=== PATIENT | female | born 1945 | race Caucasian/White ===

== ENCOUNTER 2019-12-23 16:02 | Inpatient (IN) | payer MEDICARE, OTHER ==
[~2019-12-23] VITALS: Ht 152.4 cm; Wt 97.1 kg
--- NOTE | ~2019-12-23 | CON ---
[address] [address] CONSULTATION Name: LENYGRACE Saurabh Room: [address] M.R.#: [id number] Admission: 12/24/19 Attend Phys: Clinton Ramirez MD Discharge: Date of : 43 Report #: [id number] THIS REPORT FOR: //name// cc: Jackie Parker MD, Kelly A. MD ~ THIS REPORT FOR: //name// CC: Clinton Parker DATE OF SERVICE: 12/24/2019 HISTORY OF PRESENT ILLNESS: This is a 74-year-old female patient who was evaluated by me for an episode of speech difficulty, which is resolved now. The records were reviewed and I talked to the patient and Cardiology consultation was also reviewed. The patient gives a history that she was having difficulty with some weakness, which she says is on the left side. She had some slurred speech. Those symptoms are resolved. She said she had at least 2 more episodes of similar symptoms in the past. She had an MRI done at [facility] about a month ago. She does not think that was related to the TIA. She had MRIs before. She had a Watchman put in and as I understand, she had a GI bleed and she did not want to take the blood thinner. She is on anticoagulation at the moment. REVIEW OF SYSTEMS: Indicate that she had this difficulty with speech. She had prior episodes like this. She has a pretty significant pain in the right groin area. This is since Watchman placement. She does have a history of atrial fibrillation. She had a surgery on both knees as well as shoulder. She said it is because of osteoarthritis. She had a cholecystectomy. She had hysterectomy. She has a history of hypertension. This was her relevant 14-point review of system. She does have some history of anxiety. PAST MEDICAL HISTORY: Positive for atrial fibrillation as well as GI bleed. FAMILY HISTORY: Unremarkable. SOCIAL HISTORY: She does not drink alcohol. PHYSICAL EXAMINATION: Indicate she is alert. She is responsive. She can follow simple and complex command. Her speech, concentration, fund of knowledge and memory is at her baseline. Cranial nerve examination 2-12 looks unremarkable. Neuromuscular examinations indicate that she has difficulty moving the right hip. She says it is because of pain, but I think there is some weakness there also. Reflexes in the knees could not be elicited and I cannot elicited either ankle either, but upper extremity reflexes are present. She took a long time to do the position sense, but ultimately [place] [address] CONSULTATION Name: GRACE MICHELE Room: [address] M.R.#: [id number] Admission: 12/24/19 Attend Phys: Clinton Ramirez MD Discharge: Date of : 43 Report #: [id number] the position sense. There is no meningeal sign. There is no carotid bruit. Cardiac examination indicates that she has atrial fibrillation. She is obese. Her hearing and vision looks adequate. Pulses are somewhat difficult to feel. Blood pressure is 134/63, pulse is 102, temperature is 97.4. LABORATORY DATA: White count is 9.0. Sodium is 137. She does not have any swelling. There is no thyroid mass. There is no carotid bruit. IMPRESSION: This patient presented with TIA-like symptoms. This may have been secondary to encephalopathy because she does have infection as I understand, this may also be TIA. She is already on anticoagulation. She had similar spells before. I will check a carotid Doppler, but instead of repeating most of the workup I will like to get her blood workup from [facility] rather than repeating the whole workup. It is unlikely that we will find something which will change the treatment assuming [facility] has done MRI as well as checked her intracranial circulation, which they probably have. Thank you very much for this referral and if you have any question, please feel free to contact me. By: [id number] Poole MD /milton
[2019-12-23 16:06] VITALS: BP 105/50
[2019-12-23] MEDS ORDERED: ELIQUIS5 MG PO (16:20)
[2019-12-23] MEDS ORDERED: BUSPIRONE HCL10 MG PO (16:21)
[2019-12-23] MEDS ORDERED: CARVEDILOL25 MG PO (16:21)
[2019-12-23] MEDS ORDERED: TESSALON PERLE100 M1 PO (16:21)
[2019-12-23] MEDS ORDERED: SORINE 80 MG TA80 MG PO (16:22)
[2019-12-23] MEDS ORDERED: ASA81BEC PO (16:22)
[2019-12-23] MEDS ORDERED: PROTONIX40 M2 PO (16:23)
[2019-12-23 18:04] LABS: ABSOLUTE BASOPHILS 0.1 thou/uL (0.0-0.2); ABSOLUTE EOSINOPHILS 0.3 thou/uL (0.0-0.7); ABSOLUTE LYMPHOCYTES 1.6 thou/uL (0.8-5.3); ABSOLUTE MONOCYTES 0.7 thou/uL (0.0-1.2); ABSOLUTE NEUTROPHILS 6.3 thou/uL (1.6-8.1); BASOPHILS 0.6 %; EOSINOPHILS 3.1 %; HEMATOCRIT 36.7 % (37.0-47.0); HEMOGLOBIN 12.4 gm/dL (12.0-15.0); LYMPHOCYTES 18.2 %; MCH 29.7 pg (26.0-34.0); MCHC 33.9 g/dL (28.0-37.0); MCV 87.7 fL (80.0-100.0); MPV 7.8 fl. (7.2-11.1); NUCLEATED RBCS 0 /100WBC; PLATELET COUNT* 288 thou/uL (150-400); POLYS 70.1 %; RBC 4.18 mil/uL (4.20-5.00); RDW-CV 14.6 % (10.5-14.5)
[2019-12-23 18:14] LABS: APTT 28.9 Seconds (25.0-31.3); INR 1.1; PROTIME 11.6 Seconds (9.20-11.50)
[2019-12-23 18:20] LABS: CALCIUM 9.6 mg/dL (8.5-10.1); CREATININE 0.9 mg/dL (0.6-1.3); POTASSIUM 4.1 mmol/L (3.5-5.1)
[2019-12-23 18:24] LABS: ALBUMIN 3.5 g/dL (3.4-5.0); TOTAL BILIRUBIN 0.8 mg/dL (<0.1-1.0); TOTAL PROTEIN 7.3 g/dL (6.4-8.2)
[2019-12-23 20:44] VITALS: BP 137/77
[2019-12-23 21:06] VITALS: BP 153/82
[2019-12-23] MEDS ORDERED: SPIRONOLACTONE25 MG PO (21:45)
[2019-12-23] MEDS ORDERED: CRESTOR40 MG PO (21:48)
[2019-12-23] MEDS ORDERED: TIZANIDINE HCL2 M1 PO (21:50)
[2019-12-23] MEDS ORDERED: PROAIR HFA8.5 GM INH (21:51)
[2019-12-23] MEDS ORDERED: TYLENOL EXTRA500 MG PO (22:34)
[2019-12-24] VITALS: BP 165/88
[2019-12-24 03:17] LABS: URINE BILIRUBIN NEGATIVE (Negative); URINE BLOOD NEGATIVE (Negative); URINE CLARITY CLEAR; URINE COLOR YELLOW; URINE GLUCOSE-RANDOM NEGATIVE (Negative); URINE KETONES TRACE (Negative); URINE LEUKOCYTES-REFLEX 1+ (Negative); URINE NITRITE-REFLEX NEGATIVE (Negative); URINE PROTEIN NEGATIVE (Negative); URINE UROBILINOGEN 0.2 E.U./dl (0.2-1.0)
[2019-12-24 03:29] LABS: CASTS None Seen /LPF (None Seen); CRYSTALS None Seen /LPF (None Seen); MUCUS 0-3 Light strn/LPF (None Seen); SQUAMOUS 4-10 Moderate /LPF (0-3); URINE RBC 0-2 Rare /HPF (0-2); URINE WBC-REFLEX 6-15 Few /HPF (0-5)
[2019-12-24 04:00] VITALS: BP 122/74
[2019-12-24 08:02] VITALS: BP 144/87
--- NOTE | 2019-12-24 09:35 | EKG ---
[place] [address] ELECTROCARDIOGRAM REPORT Name: GRACE MICHELE [address] [id number] Admission: 12/23/19 Attend Phys: Clinton Ramirez, Discharge: Date of : 43 Date of Service: 12/23/191813 Report #: [id number] THIS REPORT FOR: //name// [facility] ED Test Date: 2019-12-23 Test Time: 18:14:14 Pat Name: GRACE MICHELE Department: Room: [facility] Gender: F Exterminator: CCD : 1945 Requested By: Iwona Bales Order Number: [id number] MD: Kofi Harrington Measurements Intervals [place] Rate: 84 P: [place]: QRS: -5 QRSD: 101 T: 36 QT: 386 QTc: 457 Interpretive Statements Atrial fibrillation Baseline wander in lead(s) II,III,aVF No previous ECG available for comparison Electronically Signed On 12-24-2019 9:35:39 CDT by Kofi Harrington [email or web address] <ELECTRONICALLY SIGNED> By: Kofi Harrington MD, [facility] 12/24/19 0935 1814 181 Kofi Harrington MD, [facility] /EPI
[2019-12-24 10:23] LABS: ALBUMIN 3.3 g/dL (3.4-5.0); CALCIUM 9.1 mg/dL (8.5-10.1); CREATININE 0.8 mg/dL (0.6-1.3); POTASSIUM 3.8 mmol/L (3.5-5.1); TOTAL BILIRUBIN 1.4 mg/dL (<0.1-1.0); TOTAL PROTEIN 7.1 g/dL (6.4-8.2)
[2019-12-24 12:23] VITALS: BP 134/63
[2019-12-24 16:23] VITALS: BP 175/88
[2019-12-24 20:40] VITALS: BP 150/80
[2019-12-25] VITALS: BP 135/75
[2019-12-25 02:06] LABS: GLYCOHEMOGLOBIN (HGB A1C) 5.7 % (4.8-5.6)
[2019-12-25 04:00] VITALS: BP 159/92
[2019-12-25 05:34] LABS: CHOLESTEROL 76 mg/dL (<200); HDL CHOLESTEROL 35 mg/dL (>40); LDL CHOLESTEROL 29 mg/dL (<100); TC:HDL 2.2 Ratio (Not establshd); TRIGLYCERIDE 64 mg/dL (<150); VLDL 13 mg/dL (<40)
[2019-12-25 05:35] LABS: SERUM ASSESSMENT Clear
[2019-12-25 08:00] VITALS: BP 138/78
[2019-12-25 12:00] VITALS: BP 130/78
[2019-12-25 18:00] VITALS: BP 129/85
[2019-12-25 20:00] VITALS: BP 128/70
[2019-12-26] VITALS: BP 153/74
[2019-12-26 05:17] VITALS: BP 142/75
[2019-12-26 08:00] VITALS: BP 143/77
[2019-12-26] MEDS ORDERED: TRAMADOL 50 MG50 MG PO (09:31)
[2019-12-26] MEDS ORDERED: NEURONTIN 300M300 M2 PO (09:31)
[2019-12-26 11:50] VITALS: BP 143/77
[2019-12-26 12:00] VITALS: BP 137/77
== END 2019-12-26 12:00 | DRG 64 ==
LOC: M.ERS 16:02 → M.TBA-ER 18:56 → M.2W 18:56
PROVIDERS: Internal Medicine; Personal Emergency Response Attendant; ADMIT Internal Medicine; ATTEND Internal Medicine
DX: I63.9 Cerebral infarction, unspecified (principal); G93.41 Metabolic encephalopathy; N39.0 Urinary tract infection, site not specified; I48.20 Chronic atrial fibrillation, unspecified; Z20.828 Contact with and (suspected) exposure to other viral communicable diseases; I10 Essential (primary) hypertension; E78.5 Hyperlipidemia, unspecified; R10.30 Lower abdominal pain, unspecified; I48.91 Unspecified atrial fibrillation; Z96.612 Presence of left artificial shoulder joint; Z90.49 Acquired absence of other specified parts of digestive tract; Z90.710 Acquired absence of both cervix and uterus; Z88.0 Allergy status to penicillin; Z88.2 Allergy status to sulfonamides; Z83.3 Family history of diabetes mellitus; Z82.49 Family history of ischemic heart disease and other diseases of the circulatory system; Z86.73 Personal history of transient ischemic attack (TIA), and cerebral infarction without residual deficits

== ENCOUNTER 2019-12-26 11:22 | Inpatient (IN) | payer MEDICARE, OTHER ==
[~2019-12-26] VITALS: Ht 152.4 cm; Wt 92.7 kg
[~2019-12-26 11:22] MED LIST: ASA81BEC PO; BUSPIRONE HCL10 MG PO; CARVEDILOL25 MG PO; CRESTOR40 MG PO; ELIQUIS5 MG PO; NEURONTIN 300M300 M2 PO; PROAIR HFA8.5 GM INH; PROTONIX40 M2 PO; SORINE 80 MG TA80 MG PO; SPIRONOLACTONE25 MG PO; TESSALON PERLE100 M1 PO; TIZANIDINE HCL2 M1 PO; TRAMADOL 50 MG50 MG PO; TYLENOL EXTRA500 MG PO
[2019-12-26 13:00] VITALS: BP 129/68
[2019-12-26 20:17] VITALS: BP 130/72
[2019-12-27 03:48] LABS: HEMOGLOBIN 10.9 gm/dL (12.0-15.0); MCH 29.7 pg (26.0-34.0); MCHC 34.1 g/dL (28.0-37.0); MCV 87.1 fL (80.0-100.0); MPV 7.7 fl. (7.2-11.1); RBC 3.67 mil/uL (4.20-5.00); RDW-CV 14.7 % (10.5-14.5); WBC 9.7 thou/uL (4.0-11.0)
[2019-12-27 04:00] LABS: CALCIUM 9.2 mg/dL (8.5-10.1); CREATININE 0.8 mg/dL (0.6-1.3)
[2019-12-27 08:08] VITALS: BP 144/77
[2019-12-27 20:00] VITALS: BP 155/98
[2019-12-28 07:30] VITALS: BP 140/76
[2019-12-28 19:00] VITALS: BP 113/62
[2019-12-29 08:00] VITALS: BP 146/75
[2019-12-29 19:30] VITALS: BP 135/64
[2019-12-30 07:30] VITALS: BP 115/83
[2019-12-30 19:00] VITALS: BP 124/62
[2019-12-31 03:56] LABS: HEMATOCRIT 31.1 % (37.0-47.0); HEMOGLOBIN 10.4 gm/dL (12.0-15.0); MCH 28.9 pg (26.0-34.0); MCHC 33.6 g/dL (28.0-37.0); MCV 86.1 fL (80.0-100.0); MPV 7.5 fl. (7.2-11.1); RBC 3.61 mil/uL (4.20-5.00); RDW-CV 14.4 % (10.5-14.5); WBC 6.9 thou/uL (4.0-11.0)
[2019-12-31 04:06] LABS: CALCIUM 9.3 mg/dL (8.5-10.1); CREATININE 0.9 mg/dL (0.6-1.3); MAGNESIUM 2.1 mg/dL (1.8-2.4); POTASSIUM 4.1 mmol/L (3.5-5.1)
[2019-12-31 07:30] VITALS: BP 140/88
[2019-12-31 19:00] VITALS: BP 117/66
[2020-01-01 07:30] VITALS: BP 142/86
[2020-01-01 08:56] LABS: HEMATOCRIT 33.4 % (37.0-47.0); HEMOGLOBIN 11.2 gm/dL (12.0-15.0); MCH 28.8 pg (26.0-34.0); MCHC 33.4 g/dL (28.0-37.0); MPV 7.2 fl. (7.2-11.1); RBC 3.89 mil/uL (4.20-5.00); RDW-CV 14.7 % (10.5-14.5); WBC 7.5 thou/uL (4.0-11.0)
[2020-01-01 19:00] VITALS: BP 123/74
[2020-01-02 08:00] VITALS: BP 131/84
[2020-01-02 20:00] VITALS: BP 129/61
[2020-01-03 08:30] VITALS: BP 133/84
[2020-01-03 20:13] VITALS: BP 135/63
[2020-01-04 03:49] LABS: HEMATOCRIT 34.6 % (37.0-47.0); HEMOGLOBIN 11.3 gm/dL (12.0-15.0); MCH 28.4 pg (26.0-34.0); MCHC 32.7 g/dL (28.0-37.0); MPV 7.2 fl. (7.2-11.1); RBC 3.98 mil/uL (4.20-5.00); RDW-CV 14.9 % (10.5-14.5); WBC 6.8 thou/uL (4.0-11.0)
[2020-01-04 04:06] LABS: ALBUMIN 3.1 g/dL (3.4-5.0); CALCIUM 9.5 mg/dL (8.5-10.1); CREATININE 0.9 mg/dL (0.6-1.3); POTASSIUM 4.3 mmol/L (3.5-5.1); TOTAL BILIRUBIN 1.3 mg/dL (<0.1-1.0)
[2020-01-04 08:42] VITALS: BP 111/72
[2020-01-04 19:35] VITALS: BP 140/80
[2020-01-05 05:20] LABS: CALCIUM 9.5 mg/dL (8.5-10.1); CREATININE 0.9 mg/dL (0.6-1.3); POTASSIUM 4.1 mmol/L (3.5-5.1)
[2020-01-05 06:33] LABS: HEMATOCRIT 33.7 % (37.0-47.0); HEMOGLOBIN 11.1 gm/dL (12.0-15.0); MCH 28.8 pg (26.0-34.0); MCV 87.1 fL (80.0-100.0); MPV 7.7 fl. (7.2-11.1); RBC 3.87 mil/uL (4.20-5.00); RDW-CV 15.1 % (10.5-14.5); WBC 6.8 thou/uL (4.0-11.0)
[2020-01-05 08:19] VITALS: BP 140/75
[2020-01-05] MEDS ORDERED: LIDODERM1 EACH TOP (13:05)
[2020-01-05] MEDS ORDERED: HYDROCODON-ACE1 EAC7 PO (13:08)
[2020-01-05 13:12] VITALS: BP 140/75
[2020-01-05 15:15] VITALS: BP 140/75
== END 2020-01-05 14:30 | disposition home or self-care (01) | DRG 71 ==
LOC: M.REH 11:22
PROVIDERS: Family Medicine; ADMIT Physical Medicine & Rehabilitation; ATTEND Physical Medicine & Rehabilitation
DX: G93.40 Encephalopathy, unspecified (principal); N39.0 Urinary tract infection, site not specified; I48.91 Unspecified atrial fibrillation; I10 Essential (primary) hypertension; Z96.612 Presence of left artificial shoulder joint; R47.81 Slurred speech; I80.9 Phlebitis and thrombophlebitis of unspecified site; G83.24 Monoplegia of upper limb affecting left nondominant side; Z88.0 Allergy status to penicillin; Z88.2 Allergy status to sulfonamides; Z90.49 Acquired absence of other specified parts of digestive tract; Z90.710 Acquired absence of both cervix and uterus; Z86.73 Personal history of transient ischemic attack (TIA), and cerebral infarction without residual deficits; Z80.8 Family history of malignant neoplasm of other organs or systems; Z83.3 Family history of diabetes mellitus; Z82.49 Family history of ischemic heart disease and other diseases of the circulatory system